=== PATIENT | male | born 1990 | race American Indian/Alaskan Native ===

== ENCOUNTER 2020-04-23 12:10 | Emergency (ER) | payer OTHER ==
[2020-04-23 12:21] VITALS: BP 148/105
[2020-04-23 12:46] LABS: Hemoglobin 15.2 gm/dl (11.8-15.2); Mean Corpuscular HGB Conc 35 % (32-34); Mean Corpuscular Volume 89 fl (84-94); Platelet Count 281 K/mm3 (140-440); Red Blood Count 4.92 M/mm3 (3.65-5.03); Red Cell Distribution Width 12.2 % (13.2-15.2)
[2020-04-23 13:09] LABS: Alanine Aminotransferase 43 units/L (7-56); Albumin 4.6 g/dL (3.9-5); BUN/Creatinine Ratio 10; Blood Urea Nitrogen 9 mg/dL (9-20); Calcium 10.4 mg/dL (8.4-10.2); Hemolysis Index 9
[2020-04-23 13:11] LABS: Free T4 (Free Thyroxine) 2.74 ng/dL (0.76-1.46)
--- NOTE | 2020-04-23 13:53 | Emergency Department Report ---
HPI - General Chief Complaint: Weakness Time Seen by Provider: 04/23/20 13:38 - HPI HPI: 29-year-old -[place] male presents to the emergency department with complaint of an overactive thyroid. The patient has known hypothyroidism for which he is on methimazole. He says that he is seen 2 previous physicians regarding his hyperthyroidism but came in today because "now I have benefits." The patient is interested in having a thyroidectomy or at least getting the procedure started to have a thyroidectomy. He complains of some generalized weakness and some weight loss. He denies any fever, nausea, vomiting, diaphoresis. ED Past Medical Hx - Past Medical History Previous Medical History?: Yes Additional medical history: hyperthyroidism - Surgical History Past Surgical History?: No - Social History Smoking Status: Never Smoker Substance Use Type: None ED Review of Systems ROS: Stated complaint: THYROID CHECK Other details as noted in HPI Comment: All other systems reviewed and negative Constitutional: weakness. denies: chills, fever Eyes: denies: eye pain, vision change ENT: denies: ear pain, throat pain Respiratory: denies: cough, shortness of breath Cardiovascular: denies: chest pain, palpitations Endocrine: unexplained weight loss Gastrointestinal: denies: abdominal pain, vomiting Genitourinary: denies: dysuria, discharge Musculoskeletal: denies: back pain, arthralgia Skin: denies: rash, lesions Neurological: denies: headache, numbness Physical Exam - Physical Exam Vital Signs: Vital Signs 04/23/20 12:16 Temperature 98.3 F Pulse Rate 97 H Respiratory 16 Rate Blood Pressure 148/105 O2 Sat by Pulse 99 Oximetry Physical Exam: GENERAL: The patient is well-developed well-nourished. HENT: Normocephalic. Atraumatic. Patient has moist mucous membranes. EYES: Extraocular motions are intact. Except almost. NECK: Supple. Trachea is midline. CHEST/LUNGS: Clear to auscultation. There is no respiratory distress noted. HEART/CARDIOVASCULAR: Regular. There is no tachycardia. There is no murmur. ABDOMEN: Abdomen is soft, nontender. Patient has normal bowel sounds. SKIN: Skin is warm and dry. NEURO: The patient is awake, alert, and oriented. The patient is cooperative. Normal speech. MUSCULOSKELETAL: There is no tenderness or deformity. There is no limitation range of motion. There is no evidence of acute injury. ED Course Vital Signs 04/23/20 12:16 Temperature 98.3 F Pulse Rate 97 H Respiratory 16 Rate Blood Pressure 148/105 O2 Sat by Pulse 99 Oximetry ED Medical Decision Making - Lab Data Result diagrams: 04/23/20 12:31 04/23/20 12:31 - Medical Decision Making This patient presents to the emergency department regarding his hyperthyroidism. Ultimately the patient is trying to get a thyroidectomy done. He does have some exophthalmos and may have some recent weight loss subjectively. However his vital signs are stable including being afebrile. No tachycardia. Patient has not complained of any palpitations, chest pain or shortness of breath, nausea or vomiting. He does not appear in thyroid storm. His TSH is 0 and the free T4 is at 2.74. The patient is already on methimazole. I discussed with the patient that he needs to see an industrial relations representative or at least a surgeon who specializes in endocrine surgery such as the thyroidectomy. However the patient was upset that a thyroidectomy would not be performed at this time, or at least that the preop scheduling and clearance would not be performed at this time, and he eloped from the emergency department without any discharge paperwork. Critical Care Time: No Critical care attestation.: If time is entered above; I have spent that time in minutes in the direct care of this critically ill patient, excluding procedure time. ED Disposition Clinical Impression: Hyperthyroidism Disposition: Z-07 ELOPED Is pt being admited?: No Condition: Stable Time of Disposition: 13:54
[2020-04-23 14:13] LABS: Band Neutrophils # (Manual) 0.2 K/mm3; Platelet Estimate Consistent w Auto; Total Cells Counted 100
== END 2020-04-23 14:00 | disposition left against medical advice (07) ==
LOC: ED 12:10
DX: E05.00 Thyrotoxicosis with diffuse goiter without thyrotoxic crisis or storm (principal)
CPT/HCPCS: 36415; 80053; 84439; 84443; 85007; 85025; 99282